=== PATIENT | female | born 1945 | race Caucasian/White ===

== ENCOUNTER 2016-11-09 21:24 | Emergency (ER) | payer MEDICARE, OTHER ==
--- NOTE | ~2016-11-09 | CT2 ---
[facility] A Service of [facility] & [facility] RADIOLOGY TEXT RESULTS PATIENT: BRET ZAMORA LOCATION: [facility] : 45 UNIT #: [id number] AGE: [address]: Sangeeta Maldonado MD SEX: F ORDER DR: [id number] [facility] [address] [place], [place] [address] [id number] MR#: [id number] #: [id number] NAME: BRET ZAMORA : 1945 SEX: F STUDY DATE/TIME: 11/09/2016 23:15 UNIT: [facility] ROOM: STUDY DESCRIPTION: CT Abd and Pelv W Cont Attending Physician: Sangeeta Maldonado M.D. Ordering Physician: Sangeeta Maldonado M.D. Primary Care Physician: Shoaib Rao D.O. MEDICAL IMAGING REPORT This report is preliminary unless electronic signature is present EXAM a Abdomen and pelvis CT with contrast 11/09/2016 INDICATIONS Epigastric pain in a 71-year-old female. Symptoms for a day. Constipation and bloating. History of lymphoma and hysterectomy. TECHNIQUE Contrast-enhanced abdomen and pelvis CT was performed. This CT exam was performed with one or more of the following radiation dose reduction techniques: automatic exposure control, adjustment of mA and/or kV according to patient size, and iterative reconstruction. COMPARISON 09/12/[address] abdomen: The lung bases demonstrate emphysema. There is no effusion. No pericardial effusion. Aorta demonstrates moderate atherosclerotic change. No aneurysm. The spleen and adrenal glands are unremarkable. The pancreas is unremarkable and the gallbladder is contracted. The liver demonstrates a tiny cyst in the left hepatic lobe that is unchanged. Trace perihepatic ascites. Kidneys enhance symmetrically. No hydronephrosis on either side. Adenopathy in retroperitoneal station has decreased in conspicuity. Maximum thickness just inferior to the left renal vein is now 12 mm, previously about 15 mm. Subjectively it also appears smaller. Additional adenopathy on the prior study in the small bowel mesentery and extending inferiorly to the aortic bifurcation less conspicuous to essentially resolved since the prior study. CT pelvis: Bladder decompressed. Uterus surgically absent. There is a small amount of free fluid in the pelvis but no drainable fluid STS. [facility] A Service of [facility] & [facility] RADIOLOGY TEXT RESULTS PATIENT: BRET ZAMORA LOCATION: [facility] : 45 UNIT #: [id number] AGE: [address]: Sangeeta Maldonado MD SEX: F ORDER DR: selena. No adnexal mass. There is intermittent diverticulosis of the colon. Stool burden most characteristic of constipation. Appendix not clearly demonstrated but there is no secondary sign of acute appendicitis in the right lower quadrant. Appendicitis is not fully excluded in the appropriate clinical context without visualizing a normal appendix. There are fluid distended small bowel loops in the mid abdomen extending into the pelvis reaching a maximum diameter of between 2.5 and 3 cm. There is no well-defined transition point. Terminal ileum appears decompressed. Imaging findings are nonspecific but suggestive of a localized ileus rather than a partial or low grade small bowel obstruction. No pneumatosis or free air. No distinct inflammatory change to suggest enteritis. Inguinal canals are unremarkable. There are vascular calcifications in the pelvis. No suspicious bone lesion. IMPRESSION 1. Fluid distended small bowel loops that are top normal in caliber, without well-defined transition point. Imaging features suggest a small bowel ileus rather than a partial or low grade small bowel obstruction. Small amount of fluid adjacent to the liver and in the pelvis but no drainable fluid collection. No pneumatosis or free air. 2. Interval decrease in conspicuity of both subjectively and objectively of retroperitoneal adenopathy and mesenteric adenopathy since the prior 2014 study. 3. Appendix not identified. No secondary sign of appendicitis. 4. Constipation. Dictated by... Christopher Castelan M.D. THIS IS AN ELECTRONICALLY VERIFIED REPORT Christopher Castelan M.D. at 11/10/2016 10:03 PM Mague TD: 11/10/2016 09:26 JOB #: [id number] MEDICAL IMAGING REPORT Page 1 of 1 COPY
--- NOTE | ~2016-11-09 | EKG ---
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
[2016-11-09 20:08] LABS: URINE SOURCE CLEAN CATCH
[2016-11-09 20:22] LABS: URINE APPEARANCE CLEAR; URINE BACTERIA AUWI NEG (NEGATIVE); URINE BILIRUBIN NEG (NEG); URINE BLOOD NEG (NEG); URINE COLOR YELLOW; URINE GLUCOSE NEG (NEG); URINE KETONE TRACE (NEG); URINE LEUKOCYTE ESTERASE TRACE (NEG); URINE NITRATE NEG (NEG); URINE PROTEIN TRACE (NEG); URINE SPECIFIC GRAVITY 1.021 (1.003-1.035); URINE SQUAMOUS EPITHELIAL CELL FEW /[HPF]; URINE UROBILINOGEN 0.2 MG/DL (NEG)
[2016-11-09 20:38] LABS: CULTURE INDICATED? NO
[2016-11-09 21:18] LABS: BASOPHIL% 0.8 % (0-2.5); EOSINOPHIL% 0.8 % (0.0-7.0); LYMPHOCYTE# 0.7 X10e3 (1.0-3.5); LYMPHOCYTE% 16.6 % (17.0-45.0); MEAN CELL VOLUME 92.6 FL (83-96); MEAN CORPUSCULAR HEMOGLOBIN 30.8 PG (28-34); MEAN CORPUSCULAR HGB CONC 33.2 g/dL (30-36); MEAN PLATELET VOLUME 8.3 FL (6.5-11.5); MONOCYTE# 0.5 X10e3 (0-1.0); MONOCYTE% 11.5 % (3.0-12.0); NEUTROPHIL# 3.1 X10e3 (1.5-7.1); NEUTROPHIL% 70.3 % (40-75); PLATELET COUNT 179 X10e3 (140-420); RED BLOOD COUNT 3.89 X10e (3.90-5.30); RED CELL DISTRIBUTION WIDTH 15.2 % (11.0-15.5); WHITE BLOOD COUNT 4.4 X10e3 (4.0-10.5)
[2016-11-09 21:19] LABS: DIFF IND NO
[~2016-11-09 21:24] MED LIST: MOTRIN600 MG PO; NO MEDICATIONS
[2016-11-09 21:49] LABS: POC - CKMB 1.5 ng/mL (0.0-7.9); POC - TROPONIN <0.05 ng/mL (<=0.05)
[2016-11-09 21:53] LABS: ALBUMIN SERUM 4.4 g/dL (3.5-5.0); BILIRUBIN,TOTAL 0.3 mg/dL (0.2-2.0); BUN/CREATININE RATIO 16.36; CALCIUM SERUM 10.3 mg/dL (8.4-10.2); CREATININE SERUM 1.1 mg/dL (0.6-1.4); GLOM FILT RATE Estimated 50.5 mL/min (>60); POTASSIUM 3.9 mmol/L (3.5-5.1); PROTEIN TOTAL SERUM 7.6 g/dL (6.0-8.3)
[2016-11-09 21:55] LABS: BILIRUBIN, DIRECT 0.1 mg/dL (0.0-0.2); BILIRUBIN,INDIRECT 0.2 mg/dL (0.0-0.9)
[2016-11-09] MEDS ORDERED: HYDROCODONE-APA1 T58 PO (23:43)
[2016-11-09] MEDS ORDERED: BISOPROLOL-HCT1 EACH PO (23:44)
[2016-11-09] MEDS ORDERED: OMEPRAZOLE40 M1 PO (23:45)
[2016-11-09] MEDS ORDERED: DICYCLOMINE HCL10 MG PO (23:45)
[2016-11-09] MEDS ORDERED: ACYCLOVIR400 MG PO (23:45)
[2016-11-09] MEDS ORDERED: ZOFRANODT PO (23:46)
[2016-11-09] MEDS ORDERED: ASPIRIN81 M2 PO (23:47)
== END 2016-11-10 00:58 | disposition home or self-care (01) ==
LOC: CED 21:24
PROVIDERS: Emergency Medicine
DX: R10.10 Upper abdominal pain, unspecified (principal); Z88.0 Allergy status to penicillin; Z88.5 Allergy status to narcotic agent; Z79.899 Other long term (current) drug therapy
CPT/HCPCS: 36415; 74177; 80048; 80076; 81003; 82553; 83690; 84484; 85025; 93005; 96361; 96374; 96375; 99284; C9113; J1885; J2405; Q9967